=== PATIENT | female | born 1990 | race Caucasian/White ===

== ENCOUNTER 2018-06-11 10:00 | Inpatient (IN) | payer OTHER ==
[2018-06-11] MEDS ORDERED: Lactated Ringer's 1,000 ML IV ONE (12:00)
[2018-06-11 12:05] LABS: BASO # 0.1 K/uL (0.0-0.2); BASO % 0.9 % (0.0-2.0); EOS # 0.2 K/uL (0.0-0.7); EOS % 2.2 % (0.0-4.0); HEMOGLOBIN 13.3 g/dL (11.0-16.0); LYMPH % 23.2 % (20.0-40.0); MEAN CELL VOLUME 85.6 fL (81.0-99.0); MEAN CORPUSCULAR HEMOGLOBIN 29.3 pg (27.0-31.0); MEAN CORPUSCULAR HGB CONC 34.2 g/dL (33.0-37.0); MEAN PLATELET VOLUME 10.2 fL (7.2-11.7); MONO # 0.5 K/uL (0.0-0.8); MONO % 6.2 % (0.0-10.0); NEUT # 5.8 K/uL (1.8-7.0); NEUT % 67.5 % (50.0-75.0); RBC 4.56 Mil/uL (3.80-5.20); WHITE BLOOD COUNT 8.7 K/uL (4.8-10.8)
[2018-06-11 12:14] LABS: SQUAMOUS EPITHIAL < 1 /hpf (0-5); URINE BILIRUBIN NEGATIVE (NEGATIVE); URINE BLOOD NEGATIVE (NEGATIVE); URINE CLARITY Clear (Clear); URINE COLOR Colorless (YELLOW); URINE GLUCOSE (UA) NORMAL (Normal); URINE LEUKOCYTE ESTERASE NEG Leu/uL (Negative); URINE PROTEIN NEGATIVE (NEGATIVE); URINE UROBILINOGEN NORMAL mg/dL (0.2-1.0)
[2018-06-11 12:22] LABS: BLOOD UREA NITROGEN 5 mg/dL (7-17); CALCIUM 8.7 mg/dl (8.6-10.4); GFR NON-AFRICAN AMERICAN > 60
[2018-06-11] MEDS ORDERED: Oxytocin 20 units in LR 2,000 ML IV ONE (14:59)
[2018-06-11] MEDS ORDERED: Sodium Citrate/Citric Acid 15 ml Sol ONE (15:00)
[2018-06-11] MEDS ORDERED: Sodium Citrate/Citric Acid 15 ml Sol PO ONE (15:00)
[2018-06-11] MEDS ORDERED: ceFAZolin 2 GM in Sodium Chloride 0.9% 100 ML IVPB ONE (15:00)
[2018-06-11] MEDS ORDERED: cefOXitin IV 2 gm in Saline 0 GM/0 ML BAG IVPB ONE (15:00)
[2018-06-11] MEDS ORDERED: ceFAZolin 1 gm FROZEN Premix 1 GM/50 ML ML IVPB ONE (15:30)
[2018-06-11] MEDS ORDERED: cefOXitin IV 2 gm in Dextrose 2 GM/50 ML BAG IVPB ONE (15:31)
--- NOTE | 2018-06-11 15:33 | OBHP ---
Datetime: 06/11/2018 10:30 IP Adm Impression: Term, intrauterine IP Admit Plan: Admit to unit; Initiate Section protocol Admit Comment, IP Provider: This is a 27 y o female at 37.3 weeks by LMP 09/23/17 (HAYDEE 06/29/18) who presents today sent in from [facility] for delivery for IUGR status. Pt states she had sonogram done at [facility] this am which demonstrated estimated weight of 5 lbs 3 oz. Denies any acute complaints curr ently. Denies vaginal bleeding, leakage of fluids, or feeling contractions. Reports positive mo vement. Reports whitish discharge which pt states that she has had for weeks, but denies burning with urination, dysuria, or other symptoms currently. PObHx: primip, IUGR PGynHx: menarche at age 14, periods regular and last for 7 days total, no hx heavy bleeding during periods; denies hx ovarian cysts or fibroids; last pap smear wnl as per pt, no prior hx of STDs PMhx: denies PSurghx: denies Allergies: NKDA Meds: vitamins Fam hx: denies Social hx: denies smoking, EtOH, or illicit drug use Primary OB: Dr. Carmina Herr Vaginal exam: /-3 heart tracing: baseline 140 bpm, moderate accels, Cat I No contractions on tocometer A/P: for induction of labor 2/2 IUGR Reviewed U/s faxed over from [facility] for date 06/11/18 Admit to L+D Admission labs ordered IVF hydration, pt currently NPO Dr. Herr notified, agrees with plan. Further recs as per Dr. Herr. Patient seen and examined with Hospitalist, Dr. edgar De León, DO PGY-1 Attending Note: Patient seen and evaluated by me with the Resident. I agree with the above. Cervic al exam performed by me. Case D/W Dr. Carmina Herr: after lengthy discussion with patient and her fam mariola, patient has decided to proceed with elective C/S as her mode of delivery. Category 1 tracing. P atient ate apple at 1030 hours; drank tea at 0800 hours. Plan: 1) As above. 2) Preop for the O.R. Pelvic Type - PN: Adequate Extremities - PN: Normal Abdomen - PN: Normal Back - PN: Normal Breast - PN: Normal Lungs - PN: Normal Heart - PN: Normal Thyroid - PN: Normal Neurologic - PN: Normal HEENT - PN: Normal General - PN: Normal Presentation-Admit: Vertex FHR - Baseline A Provider: 140 Membranes, Provider: Intact Contraction Comments Provider: no contractions on tocometer Gestation - Est Wks by US: 37.3 EGA AdmitDate IP: 37.3 Vital Signs Provider: Reviewed; Within Normal Limits IP Chief Complaint: Other NICHD Variability Prov Fetus A: Moderate 6-25bpm NICHD Accel Fetus A IP Provider: [id number] NICHD Decel Fetus A IP Provider: None Dilatation, Provider: 0 Effacement, Provider: 30 Station, Provider: -3 Genitourinary Exam: Normal DTRs - PN: Normal
[2018-06-11] MEDS ORDERED: cefOXitin IV 2 gm in Saline 2 GM/50 ML BAG IVPB ONE (15:35)
[2018-06-11] MEDS ORDERED: Bupivacaine HCl 15 mg/2 ml Spinal Inj ONE (15:50)
[2018-06-11] MEDS ORDERED: Morphine 1 mg/ml preservative-free Inj(Duramorph) ONE (15:52)
[2018-06-11] MEDS ORDERED: Phenylephrine 10 mg/ml Inj ONE (15:52)
--- NOTE | 2018-06-11 16:28 | OBADHP ---
Datetime: 06/11/2018 10:30 Admit Comment, IP Provider: This is a 27 y o female at 37.3 weeks by LMP 09/23/17 (HAYDEE 06/29/18) who presents today c/o pain and also referred by [facility] . Pt states she had sonogram done at [facility] this a m which demonstrated estimated weight of 5 lbs 3 oz iugr, deliveyr reocmmened. Denies any acute complaints currently. Denies vaginal bleeding, leakage of fluids, or feeling contractions. Reports p ositive movement. Reports whitish discharge which pt states that she has had for weeks, but den ies burning with urination, dysuria, or other symptoms currently. PObHx: primip, IUGR PGynHx: menarche at age 14, periods regular and last for 7 days total, no hx heavy bleeding during periods; denies hx ovarian cysts or fibroids; last pap smear wnl as per pt, no prior hx of STDs PMhx: denies PSurghx: denies Allergies: NKDA Meds: vitamins Fam hx: denies Social hx: denies smoking, EtOH, or illicit drug use Primary OB: Dr. Carmina Herr Vaginal exam: /3 heart tracing: baseline 140 bpm, moderate accels, Cat I No contractions on tocometer A/P: for induction of labor 2/2 IUGR Reviewed U/s faxed over from [facility] for date 06/11/18 Admit to L+D Admission labs ordered IVF hydration, pt currently NPO Dr. Herr notified, agrees with plan. Further recs as per Dr. Herr. Patient seen and examined with Hospitalist, Dr. edgar De León, DO PGY-1 Attending Note: Patient seen and evaluated by me with the Resident. I agree with the above. Cervical exam performed by me. Case D/W Dr. Carmina Herr: after lengthy discussion with pt seen adn examined rescanned frank 4.7cm, iugr r/b/ai of iol vs pltcs dw paeitn. r/b/a/i not mlted to bleeidgn ifnectio n, thromboelmbois, infeiction, injruy to bowel ro bladder or blodo vessesla. after lenghtly discussui on pt opted fo rplcts. patient and her family, patient has decided to proceed with elective C/S as her mode of delivery. Category 1 tracing. Patient ate apple at 1030 hours; drank tea at 0800 hours. Plan: 1) As above. 2) Preop for the O.R. Pelvic Type - PN: Adequate Extremities - PN: Normal Abdomen - PN: Normal Back - PN: Normal Breast - PN: Normal Lungs - PN: Normal Heart - PN: Normal Thyroid - PN: Normal Neurologic - PN: Normal HEENT - PN: Normal General - PN: Normal Presentation-Admit: Vertex FHR - Baseline A Provider: 140 Membranes, Provider: Intact Contraction Comments Provider: no contractions on tocometer Gestation - Est Wks by US: 37.3 Vital Signs Provider: Reviewed; Within Normal Limits IP Chief Complaint: Other NICHD Variability Prov Fetus A: Moderate 6-25bpm NICHD Accel Fetus A IP Provider: [id number] NICHD Decel Fetus A IP Provider: None Dilatation, Provider: 0 Effacement, Provider: 30 Station, Provider: -3 Genitourinary Exam: Normal DTRs - PN: Normal EGA AdmitDate IP: 37.3 IP Adm Impression: Term, intrauterine IP Admit Plan: Admit to unit; Initiate Section protocol
[2018-06-11] MEDS ORDERED: Oxytocin 10 Units/ml Inj ONE (16:54)
[2018-06-11] MEDS ORDERED: Oxycodone/Acetaminophen 5/325 mg Tab PO PRN ×2 (17:19)
--- NOTE | 2018-06-11 17:25 | OBDS ---
DELIVERY PERSONNEL Delivery Doctor: Carmina Herr MD Wet End Tester: Anton Butts RN Anesthesiologist: DR FRANKS Resident: DR NICKO MATERNAL INFORMATION Delivery Anesthesia: Spinal Provider Comments: pltcs live femlae ifnat iugr 9,9 weight of 5lb 3 ounces ebl 800 ml no cmpicatiosn LABOR SUMMARY EDC: 06/29/2018 00:00 LABOR INFORMATION Group B Beta Strep: Done, Result Unknown STAGES OF LABOR Stage 3 hrs: 0 Stage 3 min: 1 BABY A INFORMATION Infant Delivery Date/Time: 06/11/2018 16:47 Method of Delivery: Born in Route : No : N/A Forceps: N/A Vacuum Extraction: N/A Shoulder Dystocia : No SHOULDER DYSTOCIA BABY A Infant Delivery Date/Time: 06/11/2018 16:47 PRESENTATION/POSITION BABY A Presentation: Cephalic Cephalic Presentation: Vertex Vertex Position: Left Occipital Anterior Breech Presentation: N/A PLACENTA INFORMATION BABY A Placenta Delivery Time : 06/11/2018 16:48 Placenta Method of Delivery: Manual Removal Placenta Status: Delivered SCORES BABY A Heart Rate 1 min: >100 bpm Resp Effort 1 min: Good Cry Reflex Irritability 1 min: Cough or Sneeze or Pulls Away Muscle Tone 1 min: Active Motion Color 1 min: Body [place], Extremities Blue SCORE 1 MIN: 9 Heart Rate 5 min: >100 bpm Resp Effort 5 min: Good Cry Reflex Irritability 5 min: Cough or Sneeze or Pulls Away Muscle Tone 5 min: Active Motion Color 5 min: Body [place], Extremities Blue SCORE 5 MIN: 9 INFANT INFORMATION BABY A Gestational Age at Delivery: 37.3 Gestational Status: Term Infant Outcome : Liveborn Condition : Stable Sex: Female IDENTIFICATION/MEDS BABY A ID Band Number: [id number] ID Band Location: Left Leg; Left Arm Sensor Applied: Yes Sensor Number: [id number] WEIGHT/LENGTH BABY A Birthweight (gms): 2340 Weight (lb): 5 Weight (oz): 3 Length Inches: 18.00 Length cms: 45.7 CORD INFORMATION BABY A No. Cord Vessels: 3 Nuchal Cord : Around Neck x1, Loose Cord Blood Taken: Yes Suction: Mouth; Nose ASSESSMENT BABY A Complications: None Physical Findings at Delivery: Within Normal Limits Respirations: Appears Normal Line Installer/ALS Called : Yes Care By: DR WILKINS Transferred To: Remains with Mother
--- NOTE | 2018-06-12 00:15 | OP ---
PROCEDURE DATE: 06/11/2018 PREOPERATIVE DIAGNOSES: Intrauterine growth restriction, term intrauterine , oligohydramnios. POSTOPERATIVE DIAGNOSES: Intrauterine growth restriction, term intrauterine , oligohydramnios. PROCEDURE PERFORMED: Primary low-transverse section. ANESTHESIA: Spinal. ANESTHESIOLOGIST: Chico Allred DO SURGEON: Carmina Herr MD FINANCE BROKER: Mike Pappas MD OPERATIVE FINDINGS: Live female , cephalic presentation, nuchal cord x1. Normal-appearing uterus, tubes, and ovaries bilaterally. Dr. Mike Pappas, healthcare administrative assistant, was present for the entire case, essentially in gaining entry, retraction, exposure, holding the bladder blade, helping the delivery of the baby, closing of all layers, and was present for the delivery. Weight 5 pounds 3 ounces. Apgars 9 and 9. ESTIMATED BLOOD LOSS: 800 mL. BLOOD PRODUCTS: None. COMPLICATIONS: None. PATHOLOGY: Placenta. INDICATIONS: Risks, benefits, alternatives, and indications of primary low-transverse section versus induction of labor were discussed with the patient. The patient opted for primary low-transverse section. After lengthy discussion, the consent was obtained. DESCRIPTION OF PROCEDURE: The patient was taken to the operating where she was given spinal anesthesia. Once it was found to be adequate, she was placed on the operating table in the dorsal supine position. The patient was prepped and draped in the usual sterile fashion. A time-out confirmed correct patient and correct procedure. A Pfannenstiel skin incision was made with a scalpel and carried down to the underlying fascia with the Bovie. The fascia was incised in the midline. The incision was extended laterally with the Bovie. The inferior aspect of the fascial incision was grasped with Allis and Hilton clamps, and the underlying rectus muscles were dissected off bluntly. Attention was then turned to the superior aspect of the fascial incision, which in a similar fashion, was grasped with Allis and Hilton clamps, and the underlying rectus muscles were dissected off bluntly. The rectus muscles were then bluntly in the midline. The peritoneum was identified and entered in clear space. The incision was extended laterally and superiorly until there was good visualization of the bladder. The vesicouterine peritoneum was incised with Metzenbaum scissors. A bladder flap was created digitally. The lower end of the Nereida was then inserted. The lower uterine segment was incised in a transverse fashion. The 's head was delivered atraumatically followed by delivery of the body. Nuchal cord was reduced x1. Both oral and nasal passages of the baby were bulb suctioned. The umbilical cord was clamped and cut. Baby was handed off to the awaiting salt lifter. Cord blood and cord gases were collected and sent x2. The placenta was then delivered manually. The uterus was exteriorized of all clots and debris. The uterine incision was repaired with 0 Vicryl in a running continuous locked fashion. A second layer of the same suture was used to close the uterus in running imbricating manner with good hemostasis at the uterine incision site. There were normal tubes and ovaries bilaterally. The uterus was then returned to the abdomen. Pericolic gutters were cleared of all clots and debris. There was good hemostasis at the uterine incision site. The peritoneum was reapproximated with a 2-0 chromic in a running continuous fashion, and the rectus fascia was reapproximated and closed with a 2-0 chromic in an interrupted manner. The fascia was reapproximated with 0 Vicryl in a running continuous fashion. The subcutaneous space was closed with a 2-0 plain in an interrupted manner. The skin was reapproximated and closed with 4-0 Monocryl in a running subcuticular fashion. At the end of the procedure, all needle, sponge and instrument counts were noted to be correct x2. The patient tolerated the procedure well and was transferred to the recovery room in stable condition. Carmina Herr MD
[2018-06-12] MEDS: Simethicone 80 mg Chewtab PO SCH ×5 (05:22→22:53)
[2018-06-12 07:57] LABS: MEAN CORPUSCULAR HEMOGLOBIN 29.1 pg (27.0-31.0); MEAN CORPUSCULAR HGB CONC 34.3 g/dL (33.0-37.0); MEAN PLATELET VOLUME 9.6 fL (7.2-11.7); RBC 4.12 Mil/uL (3.80-5.20); RED CELL DISTRIBUTION WIDTH 19.5 % (11.5-14.5); WHITE BLOOD COUNT 11.7 K/uL (4.8-10.8)
[2018-06-12] MEDS: Prenatal Multivit/Folic Acid/Iron Tab PO SCH (10:23)
[2018-06-12] MEDS ORDERED: Bisacodyl 5mg EC Tab PO ONE (17:19)
[2018-06-13] MEDS: Simethicone 80 mg Chewtab PO SCH ×4 (09:21→22:08)
[2018-06-13] MEDS: Prenatal Multivit/Folic Acid/Iron Tab PO SCH (09:21)
[2018-06-14 01:10] VITALS: O2SAT 99
--- NOTE | 2018-06-14 03:25 | OBPPN ---
Datetime: 06/12/2018 11:25 PP Pain Prov: Within normal limits PP Nausea Prov: Denies PP Flatus Prov: No PP BM Prov: No PP Heart Prov: Normal PP Lungs Prov: Normal PP Abdomen/Uterus Prov: Normal PP Lochia Prov: Normal PP Extremities Prov: Normal PP C/S Incision Prov: Normal PP Comments Phys Exam Prov: Abdomen: Soft, bowel sounds present, dressing is clean, dry and intact. Fundus is firm and at the umbilicus PP Impression Prov: Normal progression PP Plan Prov: Continue present management PP Progress Note Prov: Patient was seen and examined at bedside. Patient was out of bed to chair. VSS PE see aove a/p s/p PLTCS POD #2 regualr diet pain manente Vital Signs Provider PP: Reviewed
[2018-06-14 09:04] VITALS: BP 112/74; PULSE 61; RESP 18; TEMP 97.1
[2018-06-14] MEDS: Simethicone 80 mg Chewtab PO SCH (10:39)
[2018-06-14] MEDS: Prenatal Multivit/Folic Acid/Iron Tab PO SCH (10:40)
== END 2018-06-14 13:32 | disposition home or self-care (01) | DRG 787 ==
LOC: C.EROB 10:00 → C.4D 10:38 → C.4M 21:10
PROVIDERS: ADMIT Obstetrics & Gynecology; ATTEND Obstetrics & Gynecology
PROC: 10D00Z1 Extraction of Products of Conception, Low, Open Approach (ICD-10-PCS; principal; 2018-06-11)
DX: O36.5930 Maternal care for other known or suspected poor fetal growth, third trimester, not applicable or unspecified (principal); O41.03X0 Oligohydramnios, third trimester, not applicable or unspecified; O69.81X0 Labor and delivery complicated by cord around neck, without compression, not applicable or unspecified; Z3A.37 37 weeks gestation of pregnancy; Z37.0 Single live birth